=== PATIENT | female | born 1975 | race Caucasian/White ===

== ENCOUNTER → 2017-05-09 | Outpatient (CLI) | payer OTHER ==
[~2017-05-09] MED LIST: ASPIRIN325 PO; NUVARING VAGIN1 EACH VAG; PERCOCET PO; SERTRALINE HCL50 MG PO
== END ==
LOC: M.MRI 11:14
DX: S83.242A Other tear of medial meniscus, current injury, left knee, initial encounter (principal); S83.412A Sprain of medial collateral ligament of left knee, initial encounter; S83.512A Sprain of anterior cruciate ligament of left knee, initial encounter; X58.XXXA Exposure to other specified factors, initial encounter; Y93.89 Activity, other specified; Y92.89 Other specified places as the place of occurrence of the external cause; Y99.8 Other external cause status

== ENCOUNTER → 2017-06-07 | Day surgery (SDC) | payer OTHER ==
[2017-06-07 10:34] LABS: HEMATOCRIT 36.7 % (37.0-47.0); HEMOGLOBIN 12.3 gm/dL (12.0-15.0)
--- NOTE | 2017-07-05 15:01 | OP ---
[facility] [address] [place] [address] OPERATIVE REPORT Name: RAMONAWILDA A Room: [facility]#: [id number] Admission: 06/07/17 Attend Phys: Ilsa Rivers Discharge: Date of : 79 Report #: [id number] THIS REPORT FOR: //name// CC: Jarek Solo DICTATED BY: Gonzalez Rivas DATE OF SERVICE: 06/07/2017 PREOPERATIVE DIAGNOSES: Left knee anterior cruciate ligament rupture and grade 1 medial collateral ligament injury. 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 SURGEON: Blake Solo DO TRANSMISSION AND PROTECTION ENGINEER: Gonzalez Rivas DO SECOND TRANSMISSION AND PROTECTION ENGINEER: Roque Goff DO ANESTHESIA: General. ESTIMATED BLOOD LOSS: Minimal. PREOP ANTIBIOTICS: 1 gram Ancef IV prior to incision. TOURNIQUET TIME: Less than 70 minutes at 300 mmHg. SPECIMENS: None. COMPLICATIONS: None. DRAINS: None. CONDITION: The patient is stable to PACU. PROCEDURE: Left knee arthroscopic ACL reconstruction with [id number] allograft and chondroplasty of the medial femoral condyle. INDICATIONS: The patient is a 42-year-old female with injury about 3 months ago to her left knee. She had medial-sided knee pain and continued instability over the following months. MRI was obtained and did show a complete rupture of the [facility] [address] [place] [address] OPERATIVE REPORT Name: AWILDA NAVARRO Room: [facility].#: [id number] Admission: 06/07/17 Attend Phys: Ilsa Rivers Discharge: Date of : 79 Report #: [id number] ACL. There is also grade 1 injury to the MCL and no obvious meniscal pathology. After discussing the risks, benefits, complications, alternatives and indications to left knee arthroscopic ACL reconstruction including, but not limited to bleeding, infection, neurovascular injury, continued pain, need for further surgery, DVT, PE and inherent risks of anesthesia and other imponderables, she is willing to proceed. Consent is available in the chart. FINDINGS: Arthroscopic evaluation of the left knee demonstrated complete rupture of the femoral origin of the ACL and the femoral notch. There was also no acute pathology in the patellofemoral joint with a well maintained cartilage. Her medial compartment demonstrated grade 2-3 chondromalacia in the focal area less than 10 mm wide over the medial femoral condyle. The meniscus was intact. Lateral compartment demonstrated no acute pathology with intact meniscus to probing and intact cartilage. Examination under anesthesia yielded confirmed laxity with Maeve's testing. DESCRIPTION OF PROCEDURE: The patient was seen in preoperative holding and operative site initialed by surgeon. She was brought back to operative suite, placed on a well-padded table in supine position. General anesthesia was induced. A well-padded tourniquet was placed on the left upper thigh and left lower extremity was positioned in the arthroscopic phillips. Left lower extremity was sterilely prepped and draped in normal fashion. A time-out was performed in the usual fashion and all attendants were in agreement. Leg was exsanguinated via Esmarch and tourniquet inflated to 300 mmHg. An 11-blade scalpel was used to make a lateral portal incision through the skin and joint capsule. A blunt trocar was used to access the joint. Camera was introduced and knee was insufflated with normal saline. Diagnostic arthroscopy was performed with the above-mentioned findings. Attention was turned to medial joint space where a spinal needle was utilized for localization of a medial portal placement. An 11-blade scalpel was used to make incision through skin and joint capsule under direct visualization. A probe was introduced and appropriate structures were probed as above. Shaver was then introduced and the ruptured ACL fibers were then removed with a shaver. The ACL origin on the lateral femoral condyle was cleared of fibrous and the ACL footprint was left in place for localization of further tunnel placement. The guide was then inserted through the lateral portal as the camera was switched to the other portal. An 11-blade scalpel was used to make a superior lateral incision through the skin and IT band as the guide was advanced down to bone over the lateral femoral condyle. Guide was positioned under direct visualization and guide pin was advanced through the origin of the ACL. Adequate position was confirmed and a FlipCutter cannula was then malletted into bone and the guide pin was removed. The FlipCutter was then advanced under power on the same trajectory and exited over the origin of the ACL. A 10-mm FlipCutter was then deployed and a 20-mm tunnel was then drilled in a retrograde fashion. FlipCutter was then removed and debris from the tunnel was then removed with a shaver. Arthroscopic photos were taken confirming adequate position of the tunnel. The tibial guide was then assembled as the [address] [address] OPERATIVE REPORT Name: AWILDA NAVARRO Room: [facility]#: [id number] Admission: 06/07/17 Attend Phys: Ilsa Rivers Discharge: Date of : 79 Report #: [id number] camera was switched back to the lateral portal and the tibial guide was inserted through the medial portal, aligned with the footprint of the ACL on the tibial side. An 11-blade scalpel was used to make an incision through the skin and deep tissue over the anterior medial aspect of the tibia. The guide was advanced to bone. Guide pin was then placed and was found to be slightly more medial than the qawalangin footprint, so a parallel guide was then advanced over the pin and a second pin was inserted and this exited the center of the footprint. The initial pin was removed. A 10-mm reamer was then utilized to drill a tibial tunnel over the guide pin. Debris from the tunnel was removed with a shaver. Graft was prepared on the back table with an Endobutton for femoral fixation and 2-0 FiberWires through the tibial bone block. A passing suture was placed through the femoral and tibial tunnels in an antegrade fashion and the graft passing sutures were then pulled retrograde through the tibial and femoral tunnels. The graft was advanced under direct visualization and seated into the femoral tunnel and tibial tunnels respectively. The Endobutton was then deployed and cinched down to bone with good purchase. Care was taken to make sure Endobutton did pass deep to the IT band. There was excellent fixation of this on the femoral side. Traction was placed on the tibial sutures and a nitinol wire was advanced through the tibial tunnel. The tunnel was tapped and then a 9-mm interference screw was placed in standard fashion with excellent purchase. Prior to final fixation, the knee was brought to 30 degrees of flexion and posterior drawer applied. The interference screw was well seated in the tunnel and did not protrude. Final arthroscopic pictures were obtained showing excellent position of the ACL over its qawalangin footprint and it was probed and found to be very stable. Maeve's maneuver was performed and this was also found to be stable. There was no penetration of this interference screw into the joint. Attention was turned to the medial condyle where a chondroplasty was performed via shaver. suture limbs were cut and removed. The wound was thoroughly irrigated with normal saline and the tibial wound was closed with a 2-0 Vicryl simple inverted interrupted fashion followed by running 3-0 Monocryl and skin glue. Arthroscopic incisions were closed with 3-0 nylon in simple interrupted fashion. Tourniquet was deflated for a total tourniquet time of less than 70 minutes. Sponge and needle counts were correct times 2. The patient was awoken and brought to PACU in stable fashion. Dr. Blake Solo was present through all critical aspects of surgery. She tolerated the procedure well. <ELECTRONICALLY SIGNED> By: Blake Solo DO 07/05/17 1501 [id number] 1600Miceboni Solo DO /kirk
== END | disposition home or self-care (01) ==
LOC: M.SUR 07:50
PROVIDERS: Orthopaedic Surgery
DX: S83.512A Sprain of anterior cruciate ligament of left knee, initial encounter (principal); M94.262 Chondromalacia, left knee; S89.82XA Other specified injuries of left lower leg, initial encounter; X58.XXXA Exposure to other specified factors, initial encounter; Y93.9 Activity, unspecified; Y92.89 Other specified places as the place of occurrence of the external cause; Y99.9 Unspecified external cause status; Z79.82 Long term (current) use of aspirin; Z79.891 Long term (current) use of opiate analgesic